=== PATIENT | female | born 1990 | race Two or more races ===

== ENCOUNTER 2018-05-31 17:08 | Emergency (ER) | payer SELFPAY ==
[~2018-05-31] VITALS: Ht 172.7 cm; Wt 83.0 kg
[2018-05-31] MEDS ORDERED: IBUPROFEN 600MG TABLET PO ONE (21:00)
[2018-05-31 22:27] VITALS: BP 126/96
== END 2018-05-31 22:26 | disposition home or self-care (01) ==
LOC: ER 17:08
DX: S90.122A Contusion of left lesser toe(s) without damage to nail, initial encounter (principal); F17.200 Nicotine dependence, unspecified, uncomplicated; F12.10 Cannabis abuse, uncomplicated; J45.909 Unspecified asthma, uncomplicated; X58.XXXA Exposure to other specified factors, initial encounter; Y93.89 Activity, other specified; Y92.89 Other specified places as the place of occurrence of the external cause; Y99.8 Other external cause status
CPT/HCPCS: 73630; 81025; 99283